=== PATIENT | male | born 2000 | race Caucasian/White ===

== ENCOUNTER 2022-01-01 21:32 | Emergency (ER) | payer OTHER, SELFPAY ==
[2022-01-01 22:03] VITALS: BP 115/76; PULSE 120; RESP 18; TEMP 39.2; O2SAT 97; BMI 24.7
[2022-01-01 22:40] LABS: COVID-19 Test Negative (Negative)
[2022-01-01] MEDS: Ibuprofen 800 MG TABLET PO (23:01)
[2022-01-01] MEDS: Acetaminophen 325 MG TABLET 650 MG PO (23:05)
--- NOTE | 2022-01-01 23:21 | ED_ITS ---
HPI - General Adult General Chief complaint: General Medical Stated complaint: possible concussion Time Seen by Provider: 01/01/22 22:49 Source: patient Mode of arrival: ambulatory Limitations: no limitations History of Present Illness HPI narrative: 21-year-old male presents to the ED for headache, chills and bodyaches started today. patient denies any coughing, fever, nausea, vomitting, abdominal pain, dysuria, and hematuria. patient states he vaccinated against with phizer including booster. patient states secondly yesterday while getting into a car to sit he hit behind his ear on the edge of door. Patient states car was very low and he is tall and the car is very low and he underesestimated the height and hit behind his left ear. patient states car was parked and car door to ear was low impact. patient denies flying throught the window, hitting head on windshield or being invloved in car acciednt. Patient denies of loss of consicousnes. Related Data Previous Rx's Medication Instructions Recorded amoxicillin 875 mg-potassium 1 tab PO BID #10 tab 11/20/21 clavulanate 125 mg tablet (Augmentin) ibuprofen 600 mg tablet 600 mg PO Q8H PRN #30 tab 11/20/21 amoxicillin 875 mg-potassium 1 tab PO Q12H 7 Days #14 tab 01/02/22 clavulanate 125 mg tablet naproxen 500 mg tablet 500 mg PO BID PRN 5 Days #20 tab 01/02/22 Allergies Allergy/AdvReac Type Severity Reaction Status Date / Time No Known Allergies Allergy Verified 11/20/21 10:46 Review of Systems Review of Systems: headcae and bodyaches Yes all other systems are reviewed and are negative PMFSH Social History Social History Advance Directives: No Advance Directives Information Provided: No Physical Exam ED Vital Signs: Vital Signs - 24 hr 01/01/22 22:03 01/01/22 23:50 Temperature 102.6 F H 98.9 F Pulse Rate 120 H 108 H Respiratory Rate 18 16 Blood Pressure 115/76 Pulse Oximetry 97 BMI result Body Mass Index 24.7 Const General: cooperative, healthy appearing, comfortable, no acute distress, well developed, alert and awake Orientation/consciousness: oriented to person, oriented to place, oriented to time and patient oriented x3 HENMT Head: Yes normal to inspection, Yes No palpable skull fracture present, Yes normocephalic, Yes atraumatic and No abrasion Head images: 1. Slight tenderness. Negative for ecchymosis, deformity, abrasions, scalp tenderness, scalp hematoma, or cervical spine tenderness. Ears: hearing grossly normal bilaterally, external ears normal, TM's normal bilaterally, EAC's normal, mastoids normal and no periauricular adenopathy Face and sinus: Yes normal facial exam and Yes sinuses nontender Throat: Yes uvula midline, Yes abnormal tonsil (white exudates. negative for signs of peritonsillar abscess. ), No peritonsillar mass, No posterior orophary nx abnormal and No postnasal drainage Eyes General: appearance normal, both eyes and all related structures Neck Neck: Yes normal visual inspection and Yes full ROM Chest Chest palpation & inspection: normal inspection of the chest and normal palpation of entire chest wall Resp Effort & Inspection: normal respiratory effort and able to speak in complete sentences Auscultation: clear to auscultation bilaterally Cardio Jugular venous distension: no JVD Heart sounds: S1 normal heart sound present and S2 normal heart sound present GI Inspection: Yes normal to inspection and No abdominal wall ecchymosis Palpation (GI): Soft to palpation, not firm, nontender, no guarding and not rigid General: No CVA tenderness and Yes no CVA tenderness Back/Spine/Pelvis Back: no CVA tenderness, No CVA tenderness and No back tenderness Skin General skin exam: no rashes or lesions noted and elasticity normal Neuro General: oriented to person, oriented to place, oriented to time, patient oriented x3, gait normal and CN's II-XI intact bilaterally Extrem General: Yes normal to inspection and Yes full ROM Psych Appearance: grossly normal, well kempt and not disheveled Course Course Course Narrative: COVID test negative. Will do sores and strep Reevaluation(s) Reevaluation #1: Strep test positive. SARs COVID RSV influenza negative. Patient discharged on antibiotics. Patient received Motrin Tylenol and vital signs improved. Patient is safe for discharge. [place] Head cT injury score is 0. no head Ct scan INdicated. Time: 00:39 Medical Decision Making MDM Narrative Medical decision making narrative: Strep pharyngitis Lab Data Labs: Lab Results 01/01/22 01/01/22 01/01/22 Range/Units 22:17 23:11 23:11 COVID-19 (TAMERA) Negative (Negative) COVID-19 Clin Com See Note Influenza Type A (PCR) NEGATIVE (Negative) Influenza Type B (PCR) NEGATIVE (Negative) RSV RNA Qual (PCR) NEGATIVE (Negative) SARS-CoV-2 RNA (RT-PCR) NEGATIVE (Negative) S. pyogenes GrpA JORDYN Positive A (Negative) Discharge Plan Discharge Clinical Impression: Strep pharyngitis Patient Disposition: Home, Self-Care Instructions: Strep Throat (DC) Additional Instructions: You came back positive for strep throat. You will need oral antibiotics. Headache and body aches or due to you having strep. Your COVID, SARs, influenza and, RSV came back negative. Return to the ED for for drooling, change in voice, inability to tolerate solid food/liquid, intractable fever, weakness, chills, nausea, vomiting, headache, neck stiffness, or any other concerning symptoms. Prescriptions: New amoxicillin-pot clavulanate 875-125 mg tablet 1 tab PO Q12H 7 Days Qty: 14 0RF naproxen 500 mg tablet 500 mg PO BID PRN (Reason: pain) 5 Days Qty: 20 0RF No Action ibuprofen 600 mg tablet 600 mg PO Q8H PRN (Reason: pain) Qty: 30 0RF amoxicillin-pot clavulanate [Augmentin] 875-125 mg tablet 1 tab PO BID Qty: 10 0RF Stand Alone Forms: Work/School Release Interventions: ED Discharge Assessment Last Done: 01/02/22 00:28 Discharge Date/Time: 01/02/22 00:31 Print Language: Gabonese
[2022-01-01 23:24] LABS: Strep A Nucleic Acid Positive (Negative)
[2022-01-01 23:50] VITALS: PULSE 108; RESP 16; TEMP 37.2
[2022-01-01 23:55] LABS: Influenza A PCR NEGATIVE (Negative); Influenza B PCR NEGATIVE (Negative); Resp Syncy Virus RNA Qual PCR NEGATIVE (Negative); SARS COV2 PCR INHOUSE NEGATIVE (Negative)
== END 2022-01-02 00:31 | disposition home or self-care (01) ==
PROVIDERS: Physician Assistant; Emergency Provider Emergency Medicine; PCP Pediatrics
DX: J02.0 Streptococcal pharyngitis (principal); R50.9 Fever, unspecified; Z20.822 Contact with and (suspected) exposure to COVID-19
CPT/HCPCS: 0241U; 87635; 87651; 99283; 99284

== ENCOUNTER 2025-03-26 09:03 | Outpatient (AMB) | payer OTHER, SELFPAY ==
--- NOTE | 2025-03-26 09:06 | MHC.PC.OV ---
Vital Signs 03/26/25 09:08 Height 6 ft 3.2 in Weight 194 lb BMI 24.1 BP 122/65 Respiration 12 Pulse 88 Pulse Source Pulse Oximeter Temp 97.9 F Temp Source Temporal Artery Scan Pulse Oximetry (%) 99 Oxygen Delivery Method Room Air Intake Visit Reasons: establish care Director Of Events Required: No Accompanied by: Self / Same As Patient Allergies No Known Allergies Allergy (Verified 03/26/25 09:40) Medication List - Last Reconciled 03/26/25 by Meena Wick PA-C No Known Home Meds Tobacco use date assessed: 03/26/25 Dental Screening Dental Screen Date: 03/26/25 Did you have a dental visit in the last 12 months?: Yes Did you have a dental problem in the last 6 months where you did not have access to dental care?: No Was dental information given to patient?: Patient has dentist HPI establish care HPI Details The patient is a 24-year-old male presenting for an establishment of care and physical annual evaluation. His medical history is largely uneventful, with no chronic condition reported. The patient previously saw a refrigeration mechanic helper and mentioned confusion regarding the continuity of his care. He does not take any medications. The patient does not have significant personal medical concerns and has undergone only minor surgical procedures for wisdom tooth removal. Family history is notable for type 2 diabetes mellitus. Dietarily, he indicates managing occasional constipation with fiber and water intake. He denies any significant gastrointestinal symptoms or abnormal stools. His last STI screening was approximately six months prior, with no indication of any infections or lesions. The patient is not regularly engaging in scheduled physical activity and indicates a preference for lifestyle and dietary interventions. He occasionally uses marijuana and does not smoke tobacco or drink alcohol frequently. The absence of previous complete blood work is noted, and he agrees to proceed with comprehensive lab testing to establish a current health baseline. Social History - Consumes marijuana occasionally. - Rarely drinks alcohol. - Does not smoke tobacco. - Exercises irregularly; currently reliant on lifestyle modifications for activity. - In a long-term monogamous relationship. [facility] Medical History (Updated 03/26/25 @ 09:46 by Meena Wick PA-C) Annual physical exam Family history of diabetes mellitus Establishing care with new doctor, encounter for Family History Father No problems noted. Mother No problems noted. Social History Housing: House Alcohol intake: current Alcohol intake frequency: holidays/special occasions only Patient Tobacco Use Status: Never used Tobacco service: No Current occupational status: employed Cognitive needs: No Hearing needs: No Vision needs: No Questionnaire PHQ-9 Over the last 2 weeks, how often have you been bothered by any of the following problems? 1. Little interest or pleasure in doing things: not at all 2. Feeling down, depressed, or hopeless: not at all 3. Trouble falling or staying asleep, or sleeping too much: not at all 4. Feeling tired or having little energy: not at all 5. Poor appetite or overeating: not at all 6. Feeling bad about yourself - or that you are a failure or have let yourself or your family down: not at all 7. Trouble concentrating on things, such as reading the newspaper or watching television: not at all 8. Moving or speaking so slowly that other people could have noticed. Or the opposite - being so fidgety or restless that you have been moving around a lot more than usual: not at all 9. Thoughts that you would be better off or of hurting yourself in some way: not at all Total score: 0 Depression Screening Interpretation: Negative Depression Screening Done: Yes 99416 - PHQ-9 Billing: Yes Source: Developed by Drs. Rohit Brody, Cindi Winters, Landon Mcfadden and colleagues, with an educational eliane from [employer]. Thrive Questionnaire Date Thrive assessed: 03/26/25 I am a: Patient What is your living situation today?: I have a steady place to live Within the past 12 months, did the food you bought not last and you didn't have the money to get more?: Never true Within the past 12 months, did you worry whether your food would run out before you got money to buy more?: Never true Do you have trouble paying for medicines?: No Do you have trouble getting transportation to medical appointments?: No Do you have trouble paying your heating and electricity bill?: No Do you have trouble taking care of your child, family member or friend?: No Do you have trouble with day-to-day activities such as bathing, preparing meals, shopping, managing finances, etc.?: No Are you currently unemployed and looking for a job?: No Are you interested in more education?: No Please select the resources that you would like help with: None THRIVE Score: 0 AUDIT C Alcohol Use Questionnaire (AUDIT-C) 1. How often do you have a drink containing alcohol?: Monthly or less 2. How many drinks containing alcohol do you have on a typical day when you are drinking?: 1 or 2 3. How often do you have six or more drinks on one occasion?: Never Total Score: 1 Score Reviewed/Action Taken: No ERIC-7 AMB Questionnaire ERIC-7 Date ERIC - 7 assessed: 03/26/25 Feeling nervous, anxious, or on edge: 0 = Not at all Not being able to stop or control worryin = Not at all Worrying too much about different things: 0 = Not at all Trouble relaxin = Not at all Being so restless that it is hard to sit still: 0 = Not at all Becoming easily annoyed or irritable: 0 = Not at all Feeling afraid as if something awful might happen: 0 = Not at all Total ERIC-7 score (0-4 normal; 5-9 mild; 10-14 moderate; 15-21 severe): 0 Source: Developed by Drs. Rohit Brody, Cindi Winters, Landon Mcfadden and colleagues, with an educational eliane from [employer]. ERIC-7 Assessment Billing ERIC-7 Assessment Tool: ERIC-7 Assessment 60571 Review of Systems Const Details: - General: Denies weight changes. - Gastrointestinal: Denies abdominal pain, black or bloody stools; notes occasional constipation managed with diet. - Genitourinary: Reports normal urination. - Respiratory: No history of asthma. - Musculoskeletal: Denies back or flank pain. - Neurological: No neurological symptoms reported. - Lymphatic/Hematological: Denies history of blood disorders. Physical exam (Primary Care) Vital Signs: Last Vital Signs Temp 97.9 F 03/26/25 09:08 Pulse 88 03/26/25 09:08 Resp 12 03/26/25 09:08 BP 122/65 03/26/25 09:08 Pulse Ox 99 03/26/25 09:08 Oxygen Delivery Method Room Air 03/26/25 09:08 Care Plan Goal for BP management: <140/90 at Goal BMI result Body Mass Index 24.1 normal bmi Tobacco/Smoking Status: Tobacco use Status Tobacco use date assessed 03/26/25 03/26/25 09:15 Patient Tobacco Use Status Never used Tobacco 03/26/25 09:15 PHQ-9: PHQ-9 Score PHQ-9: Total score 0 03/26/25 09:15 Depression Screening Interpretation: Negative Thrive Assessment: Date of Thrive Assessment Date Thrive assessed 03/26/25 03/26/25 09:15 Const Other: Appearance: Alert. Oriented X3. No acute distress. Head: Normal external exam. Normocephalic. Atraumatic. Eyes: Pupils are equal, round, and reactive to light. Extraocular movements intact. Conjunctiva and sclera normal. Eyelids normal. Ears: External auditory canal normal. Tympanic membranes normal. Throat: Pharynx normal. Uvula midline. Moist mucous membranes. Neck: Normal inspection. Neck supple. Full range of motion. No adenopathy. Thyroid Normal. No meningeal signs. No neck mass noted. Cardiovascular: Normal heart rate and rhythm. Heart sound normal. No murmurs noted. Pulses normal throughout. Respiratory: No respiratory distress. Painless inspiration. Breath sounds normal. No wheezes/rales/rhonchi noted. Chest nontender. No accessory muscle usage noted or decreased air movement noted. Abdomen: Soft and nontender. Bowel sounds normal in all 4 quadrants. No distention noted. No organomegaly noted. No visible injury noted. Back: No costovertebral angle tenderness. Full range of motion noted. Skin: Skin warm and dry. Normal skin color. Normal skin turgor. No rashes/lesions/lacerations noted. Extremities: No lower extremity edema. Extremities exhibit normal range of motion. Extremities nontender. Neuro: Oriented X 3. No motor deficit. No sensory deficit. Reflexes normal. Coding Level of Care Code New Pt Level 4 (70257) New Pt Prev Care 18-39yr(32904 Diagnoses Establishing care with new doctor, encounter for Z76.89 Annual physical exam Z00.00 Family history of diabetes mellitus Z83.3 Additional Codes PHQ-9 - 26709 - PHQ-9 Billing: Yes ([id number]) ERIC-7 Assessment Billing - ERIC-7 Assessment Tool: ERIC-7 Assessment 39976 ([id number]) Assessment & Plan Assessment & Plan (1) Establishing care with new doctor, encounter for: Code(s): Z76.89 - Persons encountering health services in other specified circumstances Category: Medical (2) Annual physical exam: Code(s): Z00.00 - Encounter for general adult medical examination without abnormal findings Category: Medical (3) Family history of diabetes mellitus: Code(s): Z83.3 - Family history of diabetes mellitus Category: Medical Plan Plan Patient was informed and verbally consented to the use of an ambient scribe for clinic note documentation during this visit. 1. Establishment Of Care Initial baseline laboratory testing for comprehensive health analysis is recommended. These tests are to establish a health maintenance routine and proactively address any potential health issues. Regular health evaluations are planned contingent upon laboratory findings, and tailored recommendations will be provided based on results. I discussed the importance of establishing a regular health care routine with the patient at this stage of his life, emphasizing the long-term benefits of preventative health measures. The patient expressed understanding and agreed to proceed with comprehensive baseline laboratory tests. We talked about the importance of regular screening for sexually transmitted infections despite being in a monogamous relationship, considering past sexual health reviews. The patient's willingness to undergo these tests indicates proactive health management. We concluded that laboratory arrangements would be communicated directly to ensure ease of access for the patient, while I will review and follow up should any irregularities arise from his initial tests. Orders: Orders Hemoglobin A1c Today Z00.00 - Encounter for general adult medical examination without abnormal findings Magnesium Today Z00.00 - Encounter for general adult medical examination without abnormal findings CT NG by PCR Today Z76.89 - Persons encountering health services in other specified circumstances RPR Monitor reflex titer Today Z76.89 - Persons encountering health services in other specified circumstances Hepatitis BE Antigen Today Z76.89 - Persons encountering health services in other specified circumstances C Reactive Protein Today Z00.00 - Encounter for general adult medical examination without abnormal findings Complete Blood Count Auto Diff Today Z00.00 - Encounter for general adult medical examination without abnormal findings Comprehensive [place]. Panel Fast Today Z00.00 - Encounter for general adult medical examination without abnormal findings Lipid Panel Today Z00.00 - Encounter for general adult medical examination without abnormal findings Liver Panel Today Z00.00 - Encounter for general adult medical examination without abnormal findings PSA,Total (Free>4and<10) Today Z00.00 - Encounter for general adult medical examination without abnormal findings Vitamin B12 and Folate Today Z00.00 - Encounter for general adult medical examination without abnormal findings Vitamin D 25-OH Total Today Z00.00 - Encounter for general adult medical examination without abnormal findings TSH reflex Free T4 Today Z00.00 - Encounter for general adult medical examination without abnormal findings HIV Ab/Ag Today Z76.89 - Persons encountering health services in other specified circumstances Hepatitis BE Antibody Today Z76.89 - Persons encountering health services in other specified circumstances Patient Instructions: - Visit a lab location for fasting blood work as part of routine health evaluation. - Maintain healthy hydration and dietary fiber intake to manage constipation. - Return for follow-up in one year or sooner if health concerns arise. - Contact me immediately if you develop new health symptoms. - Continue cautious substance use; consider regular exercise for overall health maintenance. - Regularly review sexual health, even in a committed relationship.
[2025-03-26 09:08] VITALS: BP 122/65; PULSE 88; RESP 12; TEMP 36.6; O2SAT 99; BMI 24.1
--- OUTSIDE RECORDS SUMMARY | 2025-03-26 09:26 | XMS_ITS | Encounter Summary ---
Author Organization [facility] Address [address] [place] [address] Phone Care Team Providers Care Whiting Can Worker Name Role Phone Buddy Castañeda MD Primary Care Provider [phone] Encounter Details Date Type Department Care Team (Late st Contact Info) Description 10/04/2013 Documentation [facility] [place] [address] [place] [address] Family Medicine, Physician [address] [place], [place] [id number] Social History Tobacco Use Types Packs/Day Years Used Date Smoking Tobacco: Never Assessed Sex and Gender Information Value Date Recorded Sex Assigned at Not on file Legal Sex Male 4:39 PM EDT Gender Identity Not on file Sexual Orientation Lesbian or [place] 07/07/2023 4: 38 PM EDT documented as of this encounter Plan of Treatment Not on file documented as of this encounter Visit Diagnoses Not on filedocumented in this encounter Care Teams Whiting Can Worker Relationship Specialty Start Date End Date Buddy Castañeda MD [address] [facility] [place] [address] PCP - General Pediatrics 04/22/18 01/18/24 documented as of this encounter
== END 2025-03-26 09:39 | disposition home or self-care (01) ==
LOC: HO.HMCSH 09:03
PROVIDERS: PCP Internal Medicine; Visit Provider Physician Assistant Medical
DX: Z00.00 Encounter for general adult medical examination without abnormal findings (principal); Z76.89 Persons encountering health services in other specified circumstances; Z83.3 Family history of diabetes mellitus

== ENCOUNTER → 2025-03-26 09:03 | Outpatient (BNVA) | payer OTHER, SELFPAY | PROVIDERS: PCP Internal Medicine; Visit Provider Physician Assistant Medical | DX: Z00.00 Encounter for general adult medical examination without abnormal findings (principal); K59.00 Constipation, unspecified; Z83.3 Family history of diabetes mellitus; Z76.89 Persons encountering health services in other specified circumstances | CPT/HCPCS: 96127 ==